=== PATIENT | female | born 1940 | race Caucasian/White ===

== ENCOUNTER 2018-12-30 09:15 | Outpatient (CLI) | payer MEDICARE | END 2018-12-30 09:16 | disposition home or self-care (01) | LOC: CTENTCT 09:15 | PROVIDERS: ATTEND Otolaryngology Plastic Surgery within the Head & Neck | DX: J01.81 Other acute recurrent sinusitis (principal) | CPT/HCPCS: 70486 ==

== ENCOUNTER 2021-09-12 13:52 | Outpatient (CLI) | payer MEDICARE | END 2021-09-12 13:53 | disposition home or self-care (01) | LOC: BICULT 13:52 | PROVIDERS: ATTEND Family Medicine | DX: N18.2 Chronic kidney disease, stage 2 (mild) (principal); N28.1 Cyst of kidney, acquired; N28.89 Other specified disorders of kidney and ureter | CPT/HCPCS: 76770 ==